=== PATIENT | female | born 1945 | race Caucasian/White ===

== ENCOUNTER 2020-08-08 13:22 | Inpatient (IN) ==
[2020-08-08] MEDS ORDERED: Gabapentin 100 MG CAPSULE PO PRN (14:58)
[2020-08-08] MEDS ORDERED: *HR* Metformin 500 MG TABLET PO SCH (21:00)
[2020-08-09 05:30] LABS: Basophils % 0.3 %; Eosinophils # 0.2 K/mcL (0.0-0.6); Eosinophils % 1.6 %; Hematocrit 28.4 % (35.3-44.9); Hemoglobin 9.6 g/dL (11.5-15.4); Immature Granulocytes % 1.6 % (0-4); Lymphocytes # 2.1 K/mcL (0.6-4.6); Mean Corpuscular HGB Conc 33.8 g/dL (31.6-35.5); Mean Corpuscular Hemoglobin 32.1 pg (28.0-33.3); Mean Platelet Volume 9.5 fL (9.4-12.4); Monocytes # 0.8 K/mcL (0.0-1.3); Monocytes % 5.4 %; Platelet Count 299 K/mcL (140-400); Red Blood Count 2.99 M/mcL (3.82-4.97); Red Cell Distribution Width 14.9 % (11.5-14.5); Segmented Neutrophils % 77.1 %; White Blood Count 14.7 K/mcL (4.3-11.1)
[2020-08-09 05:32] LABS: Neutrophils # 11.3 K/mcL (1.6-8.9)
[2020-08-09] MEDS ORDERED: *HR* Enoxaparin 40 MG/0.4 ML SYRINGE SQ SCH (06:00)
[2020-08-09 06:01] LABS: BUN/Creatinine Ratio 16 (6-26); Blood Urea Nitrogen 12 mg/dL (8-23); Calcium 7.2 mg/dL (8.6-10.3); Carbon Dioxide 22 mEq/L (23-29); Chloride 99 mEq/L (98-107); Glucose 143 mg/dL (70-105); Osmolality,Calculated 268 (280-300); Potassium 4.4 mEq/L (3.5-5.1); Sodium 128 mEq/L (136-145); eGFR For African Americans > 60 (> 60); eGFR For Non-African Americans > 60 (> 60)
[2020-08-09] MEDS: Aspirin Enteric Coated 81 MG Tablet PO SCH (08:19)
[2020-08-09] MEDS: FLUoxetine 20 MG CAPSULE PO SCH (08:19)
[2020-08-09] MEDS: *HR* Glimepiride 2 MG TABLET PO SCH (08:19)
[2020-08-09] MEDS: Losartan/HCTZ 50-12.5 TABLET PO SCH (08:21)
[2020-08-09] MEDS: Loratadine 10 MG TABLET PO SCH (08:22)
[2020-08-09] MEDS: Metoprolol XL (24 HR) Succ 50 MG TAB.ER.24H PO SCH (08:43)
[2020-08-09] MEDS: Ertapenem 1,000 MG in 0.9 % Sodium Chloride Mini Bag 100 ML IVPB SCH (11:55)
[2020-08-09] MEDS: *HR* Metformin 500 MG TABLET PO SCH (16:35)
[2020-08-10] MEDS: Losartan/HCTZ 50-12.5 TABLET PO SCH (09:00)
[2020-08-10] MEDS: *HR* Metformin 500 MG TABLET PO SCH ×2 (09:00→17:09)
[2020-08-10] MEDS: Metoprolol XL (24 HR) Succ 50 MG TAB.ER.24H PO SCH (09:00)
[2020-08-10] MEDS: *HR* Glimepiride 2 MG TABLET PO SCH (09:01)
[2020-08-10] MEDS: Loratadine 10 MG TABLET PO SCH (09:01)
[2020-08-10] MEDS: Aspirin Enteric Coated 81 MG Tablet PO SCH (09:01)
[2020-08-10] MEDS: FLUoxetine 20 MG CAPSULE PO SCH (09:01)
[2020-08-10 09:49] LABS: Estimated Average Glucose 154 mg/dl
[2020-08-10] MEDS: Ertapenem 1,000 MG in 0.9 % Sodium Chloride Mini Bag 100 ML IVPB SCH (12:05)
[2020-08-11 05:06] LABS: Hematocrit 27.3 % (35.3-44.9); Hemoglobin 9.3 g/dL (11.5-15.4); Mean Corpuscular HGB Conc 34.1 g/dL (31.6-35.5); Mean Corpuscular Hemoglobin 32.1 pg (28.0-33.3); Mean Corpuscular Volume 94.1 fL (83.0-100.0); Mean Platelet Volume 9.6 fL (9.4-12.4); Platelet Count 382 K/mcL (140-400); Red Cell Distribution Width 14.6 % (11.5-14.5); White Blood Count 14.5 K/mcL (4.3-11.1)
[2020-08-11 06:05] LABS: Alanine Aminotransferase 22 Units/L (7-52); Albumin 2.6 g/dL (3.5-5.7); Alkaline Phosphatase 105 Units/L (34-104); Aspartate Amino Transferase 24 Units/L (13-39); BUN/Creatinine Ratio 12 (6-26); Bilirubin,Total 0.7 mg/dL (0.3-1.0); Blood Urea Nitrogen 9 mg/dL (8-23); Calcium 7.4 mg/dL (8.6-10.3); Carbon Dioxide 24 mEq/L (23-29); Chloride 93 mEq/L (98-107); Globulin 2.7 g/dL (2.4-3.5); Glucose 143 mg/dL (70-105); Osmolality,Calculated 263 (280-300); Potassium 3.9 mEq/L (3.5-5.1); Sodium 126 mEq/L (136-145); Total Protein 5.3 g/dL (6.4-8.9); eGFR For African Americans > 60 (> 60); eGFR For Non-African Americans > 60 (> 60)
[2020-08-11] MEDS: *HR* Metformin 500 MG TABLET PO SCH ×2 (08:30→17:20)
[2020-08-11] MEDS: Metoprolol XL (24 HR) Succ 50 MG TAB.ER.24H PO SCH (08:30)
[2020-08-11] MEDS: Loratadine 10 MG TABLET PO SCH (08:30)
[2020-08-11] MEDS: FLUoxetine 20 MG CAPSULE PO SCH (08:31)
[2020-08-11] MEDS: Aspirin Enteric Coated 81 MG Tablet PO SCH (08:31)
[2020-08-11] MEDS: *HR* Glimepiride 2 MG TABLET PO SCH (08:31)
[2020-08-11] MEDS: Losartan/HCTZ 50-12.5 TABLET PO SCH (08:31)
[2020-08-11] MEDS: Ertapenem 1,000 MG in 0.9 % Sodium Chloride Mini Bag 100 ML IVPB SCH (12:45)
[2020-08-11] MEDS: Metoclopramide 10 MG/10 ML UD.LIQ PO SCH ×3 (12:45→23:43)
[2020-08-11] MEDS: Ondansetron ODT 4 MG TAB.RAPDIS SL PRN ×2 (19:41→23:43)
[2020-08-12] MEDS: Ondansetron ODT 4 MG TAB.RAPDIS SL PRN (05:42)
[2020-08-12] MEDS: Metoclopramide 10 MG/10 ML UD.LIQ PO SCH ×4 (05:42→23:18)
[2020-08-12] MEDS: *HR* Metformin 500 MG TABLET PO SCH ×2 (09:02→16:33)
[2020-08-12] MEDS: Losartan/HCTZ 50-12.5 TABLET PO SCH (09:02)
[2020-08-12] MEDS: FLUoxetine 20 MG CAPSULE PO SCH (09:02)
[2020-08-12] MEDS: Loratadine 10 MG TABLET PO SCH (09:03)
[2020-08-12] MEDS: *HR* Glimepiride 2 MG TABLET PO SCH (09:03)
[2020-08-12] MEDS: Aspirin Enteric Coated 81 MG Tablet PO SCH (09:03)
[2020-08-12] MEDS: Ertapenem 1,000 MG in 0.9 % Sodium Chloride Mini Bag 100 ML IVPB SCH (12:41)
[2020-08-13] MEDS: Metoclopramide 10 MG/10 ML UD.LIQ PO SCH (05:15)
[2020-08-13] MEDS: *HR* Glimepiride 2 MG TABLET PO SCH (07:58)
[2020-08-13] MEDS: Loratadine 10 MG TABLET PO SCH (07:58)
[2020-08-13] MEDS: Aspirin Enteric Coated 81 MG Tablet PO SCH (07:58)
[2020-08-13] MEDS: FLUoxetine 20 MG CAPSULE PO SCH (07:58)
[2020-08-13] MEDS: *HR* Metformin 500 MG TABLET PO SCH ×2 (07:58→16:33)
[2020-08-13] MEDS: Losartan/HCTZ 50-12.5 TABLET PO SCH (07:59)
[2020-08-13] MEDS ORDERED: Ertapenem 1,000 MG in 0.9 % Sodium Chloride Mini Bag 100 ML IVPB ONE (15:30)
[2020-08-13] MEDS: Ertapenem 1,000 MG in 0.9 % Sodium Chloride Mini Bag 100 ML IVPB SCH (15:32)
[2020-08-14] MEDS: *HR* OxyCODONE/APAP 5/325 TABLET PO PRN ×2 (03:30→19:04)
[2020-08-14] MEDS: Loratadine 10 MG TABLET PO SCH (08:06)
[2020-08-14] MEDS: FLUoxetine 20 MG CAPSULE PO SCH (08:06)
[2020-08-14] MEDS: *HR* Glimepiride 2 MG TABLET PO SCH (08:06)
[2020-08-14] MEDS: Losartan/HCTZ 50-12.5 TABLET PO SCH (08:06)
[2020-08-14] MEDS: *HR* Metformin 500 MG TABLET PO SCH ×2 (08:07→16:18)
[2020-08-14] MEDS: Aspirin Enteric Coated 81 MG Tablet PO SCH (08:07)
[2020-08-15 07:06] LABS: Basophils % 0.4 %; Eosinophils # 0.3 K/mcL (0.0-0.6); Hematocrit 27.1 % (35.3-44.9); Hemoglobin 9.2 g/dL (11.5-15.4); Immature Granulocytes % 0.4 % (0-4); Lymphocytes # 1.4 K/mcL (0.6-4.6); Lymphocytes % 13.7 %; Mean Corpuscular HGB Conc 33.9 g/dL (31.6-35.5); Mean Corpuscular Hemoglobin 32.1 pg (28.0-33.3); Mean Corpuscular Volume 94.4 fL (83.0-100.0); Mean Platelet Volume 9.3 fL (9.4-12.4); Monocytes # 1.1 K/mcL (0.0-1.3); Neutrophils # 7.2 K/mcL (1.6-8.9); Platelet Count 397 K/mcL (140-400); Red Blood Count 2.87 M/mcL (3.82-4.97); Red Cell Distribution Width 14.6 % (11.5-14.5); Segmented Neutrophils % 71.5 %; White Blood Count 10.1 K/mcL (4.3-11.1)
[2020-08-15 07:32] LABS: BUN/Creatinine Ratio 23 (6-26); Blood Urea Nitrogen 14 mg/dL (8-23); Calcium 7.4 mg/dL (8.6-10.3); Carbon Dioxide 26 mEq/L (23-29); Chloride 95 mEq/L (98-107); Glucose 134 mg/dL (70-105); Osmolality,Calculated 270 (280-300); Potassium 3.7 mEq/L (3.5-5.1); Sodium 129 mEq/L (136-145); eGFR For African Americans > 60 (> 60); eGFR For Non-African Americans > 60 (> 60)
[2020-08-15] MEDS: *HR* Metformin 500 MG TABLET PO SCH ×2 (09:51→17:22)
[2020-08-15] MEDS: Loratadine 10 MG TABLET PO SCH (09:51)
[2020-08-15] MEDS: *HR* Glimepiride 2 MG TABLET PO SCH (09:51)
[2020-08-15] MEDS: Aspirin Enteric Coated 81 MG Tablet PO SCH (09:51)
[2020-08-15] MEDS: Losartan/HCTZ 50-12.5 TABLET PO SCH (09:51)
[2020-08-15] MEDS: FLUoxetine 20 MG CAPSULE PO SCH (09:51)
[2020-08-16] MEDS: *HR* Glimepiride 2 MG TABLET PO SCH (08:35)
[2020-08-16] MEDS: FLUoxetine 20 MG CAPSULE PO SCH (08:35)
[2020-08-16] MEDS: *HR* Metformin 500 MG TABLET PO SCH ×2 (08:35→17:19)
[2020-08-16] MEDS: Loratadine 10 MG TABLET PO SCH (08:35)
[2020-08-16] MEDS: Aspirin Enteric Coated 81 MG Tablet PO SCH (08:35)
[2020-08-16] MEDS: *HR* OxyCODONE/APAP 5/325 TABLET PO PRN (23:40)
[2020-08-17 07:17] VITALS: BP 122/76
[2020-08-17] MEDS: FLUoxetine 20 MG CAPSULE PO SCH (08:00)
[2020-08-17] MEDS: Loratadine 10 MG TABLET PO SCH (08:00)
[2020-08-17] MEDS: *HR* Glimepiride 2 MG TABLET PO SCH (08:01)
[2020-08-17] MEDS: Aspirin Enteric Coated 81 MG Tablet PO SCH (08:01)
[2020-08-17] MEDS: *HR* Metformin 500 MG TABLET PO SCH (08:01)
== END 2020-08-17 12:35 | disposition home health service (06) | DRG 435 ==
LOC: INPPIK 16:35
PROVIDERS: ADMIT Family Medicine; ATTEND Family Medicine